=== PATIENT | male | born 1990 ===

== ENCOUNTER 2020-07-09 01:15 | Emergency (ER) | payer SELFPAY ==
--- NOTE | 2020-07-09 01:49 | EDM.PDOC ---
ED HPI GENERAL MEDICAL PROBLEM - General Chief Complaint: General Stated Complaint: "I think I have a kidney stone again" Time Seen by Provider: 07/09/20 01:46 Source of Information: Reports: Patient History Limitations: Reports: No Limitations - History of Present Illness INITIAL COMMENTS - FREE TEXT/NARRATIVE: States that he woe up at 12:20 to go to the [place] and he had sudden onset of right sided abdominal pain. Has history of right sided kidney stone 4 years ago. has not had any since then. Pt is having difficulty finding position of comfort. No nausea at this time. Onset: Today Onset Date: 07/09/20 Onset Time: 00:20 Location: Reports: Abdomen (right sided flank pain.) Quality: Reports: Sharp, Stabbing Associated Symptoms: Denies: Fever/Chills, Nausea/Vomiting RIGHT FLANK Pain Score (Numeric/FACES): 9 - Related Data Allergies Allergy/AdvReac Type Severity Reaction Status Date / Time No Known Allergies Allergy Verified 07/09/20 01:20 Home Meds: Home Meds . [No Known Home Meds] 05/31/16 [History] Past Medical History - Past Health History Medical/Surgical History: Denies Medical/Surgical History Genitourinary History: Reports: Renal Calculus Social & Family History - Family History Family Medical History: No Pertinent Family History - Tobacco Use Tobacco Use Status *Q: Never Tobacco User - Caffeine Use Caffeine Use: Reports: None ED ROS GENERAL - Review of Systems Review Of Systems: See Below Constitutional: Denies: Fever, Chills Respiratory: Reports: No Symptoms Cardiovascular: Reports: No Symptoms GI/Abdominal: Reports: Abdominal Pain, Constipation, Diarrhea : Reports: Flank Pain. Denies: Dysuria ED EXAM, GENERAL - Physical Exam Exam: See Below Exam Limited By: No Limitations General Appearance: Alert, WD/WN, Severe Distress Respiratory/Chest: No Respiratory Distress, Lungs Clear, Normal Breath Sounds Cardiovascular: Regular Rate, Rhythm GI/Abdominal: Normal Bowel Sounds, Soft, Tender (right sided md abdominal pain.) Neurological: Alert, Oriented Skin Exam: Warm, Dry, Intact Course - Vital Signs Last Recorded V/S: Last Vital Signs Temp 97.4 F 07/09/20 03:24 Pulse 94 07/09/20 03:24 Resp 18 07/09/20 03:24 BP 137/89 07/09/20 03:24 Pulse Ox 98 07/09/20 03:24 - Orders/Labs/Meds Orders: Active Orders 24 hr Category Date Time Status Abdomen Pelvis wo Cont [CT] Stat Exams 07/09/20 01:59 Ordered HYDROmorphone [Dilaudid] Med 07/09/20 02:09 Ordered 1 mg IVPUSH Q1H PRN Sodium Chloride 0.9% [Normal Saline] 1,000 ml Med 07/09/20 02:00 Active IV ASDIRECTED Medication Orders Hydromorphone HCl (Dilaudid) 1 mg IVPUSH Q1H PRN PRN Reason: Pain Last Admin: 07/09/20 02:12 Dose: 1 mg Documented by: CLAUS Sodium Chloride (Normal Saline) 1,000 mls @ 500 mls/hr IV ASDIRECTED OBEY Last Admin: 07/09/20 01:58 Dose: 500 mls/hr Documented by: CLAUS Labs: Laboratory Tests 07/09/20 07/09/20 07/09/20 Range/Units 01:28 01:28 01:28 WBC 6.5 (5.0-10.0) 10^3/uL RBC 4.75 (4.50-6.00) 10^6/uL Hgb 14.9 (14.0-18.0) g/dL Hct 42.1 (40.0-54.0) % MCV 88.6 (82.0-94.0) fL MCH 31.4 (27.0-32.0) pg MCHC 35.4 (33.0-38.0) g/dL RDW Coeff of [place] 11.6 (11.0-15.0) % Plt Count 236 (150-400) 10^3/uL Neut % (Auto) 42.7 (35-85) % Lymph % (Auto) 49.5 (10-55) % [place] % (Auto) 6.3 (0-16) % Eos % (Auto) 1.2 (0-5) % Baso % (Auto) 0.3 (0-3) % Neut # (Auto) 2.79 (1.80-7.00) 10^3/uL Lymph # (Auto) 3.23 (1.00-4.80) 10^3/uL [place] # (Auto) 0.41 (0.00-0.80) 10^3/uL Eos # (Auto) 0.08 (0.00-0.45) 10^3/uL Baso # (Auto) 0.02 10^3/uL Sodium 140 (136-145) mEq/L Potassium 3.5 (3.5-5.0) mEq/L Chloride 101 (98-106) mEq/L Carbon Dioxide 29 (21-32) mmol/L BUN 13 (7-18) mg/dL Creatinine 1.1 (0.7-1.3) mg/dL Est Cr Clr Drug Dosing 95.86 mL/min Estimated GFR (MDRD) > 60 (>=60) mL/min Glucose 132 H (75-99) mg/dL Calcium 8.9 (8.4-10.1) mg/dL Urine Color Yellow (YELLOW) Urine Appearance Slightly cloudy (CLEAR) Urine pH 5.5 (4.5-8.0) Ur Specific [place] >= 1.030 H (1.003-1.020) Urine Protein 30 H (NEGATIVE) mg/dL Urine Glucose (UA) Negative (NEGATIVE) mg/dL Urine Ketones Negative (NEGATIVE) mg/dL Urine Occult Blood Large H (NEGATIVE) Urine Nitrite Negative (NEGATIVE) Urine Bilirubin Negative (NEGATIVE) Urine Urobilinogen 0.2 (0.2-1.0) EU/dL Ur Leukocyte Esterase Negative (NEGATIVE) Urine RBC >100 H (0-5) /HPF Urine WBC 0-5 (0-5) /HPF Ur Squamous Epith Cells Rare (NOT SEEN) /HPF Meds: Medications Generic Name Dose Route Start Last Admin Trade Name Freveronica PRN Reason Stop Dose Admin Hydromorphone HCl 1 mg 07/09/20 02:09 07/09/20 02:12 Dilaudid IVPUSH 1 mg Q1H PRN Administration Pain Sodium Chloride 1,000 mls @ 500 mls/hr 07/09/20 02:00 07/09/20 01:58 Normal Saline IV 500 mls/hr ASDIRECTED OBEY Administration Discontinued Medications Generic Name Dose Route Start Last Admin Trade Name Dean PRN Reason Stop Dose Admin Ketorolac Tromethamine 30 mg 07/09/20 01:54 07/09/20 02:04 Toradol IVPUSH 07/09/20 01:55 30 mg ONETIME ONE Administration Morphine Sulfate 4 mg 07/09/20 01:51 07/09/20 01:59 Morphine IVPUSH 07/09/20 01:52 4 mg ONETIME ONE Administration Tamsulosin HCl 0.4 mg 07/09/20 01:54 07/09/20 02:04 Flomax PO 07/09/20 01:55 0.4 mg ONETIME ONE Administration - Re-Assessments/Exams Free Text/Narrative Re-Assessment/Exam: 07/09/20 03:[address] report with pt. He has total of 5 stones in varying sizes with 3.6 mm stone obstructing the on the right. Pain is controlled at this time. will make referral to Urology in the morning to [place]. Pt is in agreement with this. Will discharge on home pain meds and continue on the flomax. Departure - Departure Time of Disposition: 03:27 Disposition: Home, Self-Care 01 Condition: Good Clinical Impression: Ureteral stone - Discharge Information *PRESCRIPTION DRUG MONITORING PROGRAM REVIEWED*: Not Applicable *COPY OF PRESCRIPTION DRUG MONITORING REPORT IN PATIENT KIRSTIE: Not Applicable Forms: ED Department Discharge Additional Instructions: Push fluids will call with appt to urology tomorrow Myton 1-2 tabs every 4-6 hours as needed for pain Flomax 0.4 mg daily for the next week or as advised by the urologist. Recheck if any new concerns. Sepsis Event Note (ED) - Evaluation Sepsis Screening Result: No Definite Risk - Focused Exam Vital Signs: Vital Signs Temp Pulse Resp BP Pulse Ox 07/09/20 03:24 97.4 F 94 18 137/89 98 07/09/20 01:20 97.7 F 91 20 136/96 H 96 - Problem List & Annotations (1) Ureteral stone SNOMED Code(s): 90511782 Code(s): N20.1 - CALCULUS OF URETER Status: Acute Priority: High Current Visit: Yes - Problem List Review Problem List Initiated/Reviewed/Updated: Yes - My Orders Last 24 Hours: My Active Orders 07/09/20 01:59 Abdomen Pelvis wo Cont [CT] Stat 07/09/20 02:00 Sodium Chloride 0.9% [Normal Saline] 1,000 ml IV ASDIRECTED 07/09/20 02:09 HYDROmorphone [Dilaudid] 1 mg IVPUSH Q1H PRN - Assessment/Plan Last 24 Hours: My Active Orders 07/09/20 01:59 Abdomen Pelvis wo Cont [CT] Stat 07/09/20 02:00 Sodium Chloride 0.9% [Normal Saline] 1,000 ml IV ASDIRECTED 07/09/20 02:09 HYDROmorphone [Dilaudid] 1 mg IVPUSH Q1H PRN
[2020-07-09] MEDS ORDERED: Morphine 4 MG/ML VIAL IVPUSH ONE (01:51)
[2020-07-09] MEDS ORDERED: Tamsulosin 0.4 MG Cap.ER PO ONE (01:54)
[2020-07-09] MEDS ORDERED: Ketorolac 30 MG/ML SDV IVPUSH ONE (01:54)
[2020-07-09 01:56] LABS: CHLORIDE,CL 101 mEq/L (98-106); SODIUM,NA 140 mEq/L (136-145)
[2020-07-09] MEDS ORDERED: Sodium Chloride 0.9% 1,000 ML IV SCH (02:00)
[2020-07-09] MEDS: HYDROmorphone 1 MG/ML Syringe IVPUSH PRN ×2 (02:12→03:36)
[2020-07-09] MEDS ORDERED: Acetaminophen/HYDROcodone 325-5 MG Tab ONE (03:13)
[2020-07-09 03:25] VITALS: BP 137/89; PULSE 94
[2020-07-09] MEDS ORDERED: Take Home: Acetaminophen/HYDROcodone 325-5 MG, 2 Tab Pack PO ONE (03:30)
== END 2020-07-09 04:01 | disposition home or self-care (01) ==
LOC: CC.ED 01:15
DX: N13.2 Hydronephrosis with renal and ureteral calculous obstruction (principal)
CPT/HCPCS: 36415; 74176; 80048; 81001; 85025; 96374; 96375; 96376; 99284-25; A9270-GY; J1170; J1885; J2270; J7030

== ENCOUNTER 2025-01-27 10:30 | Emergency (ER) | payer SELFPAY ==
[2025-01-27] MEDS: Ondansetron 4 MG/2 ML SDV IVPUSH STA (10:47)
[2025-01-27 11:04] LABS: BASOPHILS ABSOLUTE AUTO 0.02 10^3/uL (0.00-0.50); BASOPHILS PERCENT AUTO 0.3 % (0-1); EOSINOPHILS ABSOLUTE AUTO 0.04 10^3/uL (0.00-1.50)
[2025-01-27 11:09] LABS: EOSINOPHILS PERCENT AUTO 0.7 % (0-6); IMMATURE GRAN ABSOLUTE AUTO 0.02 10^3/uL (0.00-0.49); IMMATURE GRAN PERCENT AUTO 0.3 % (0.0-4.9); LYMPHOCYTES ABSOLUTE AUTO 1.61 10^3/uL (0.60-5.00); LYMPHOCYTES PERCENT AUTO 26.6 % (24-44); MONOCYTES ABSOLUTE AUTO 0.28 10^3/uL (0.00-1.50); MONOCYTES PERCENT AUTO 4.6 % (0-10); NEUTROPHILS ABSOLUTE AUTO 4.09 x10^3/uL (1.80-8.00); NEUTROPHILS PERCENT AUTO 67.5 % (41-71); PLATELET COUNT,PLT 247 10^3/uL (150-400); RED BLOOD CELL COUNT 5.23 x10^6/uL (4.50-6.00); WHITE BLOOD CELL COUNT,WBC 6.1 10^3/uL (4.0-11.0)
[2025-01-27 11:22] LABS: ALANINE AMINOTRANSFERASE,ALT 98.0 U/L (12-78); ASPARTATE AMNIOTRANSFERASE,AST 37.0 U/L (15-37); BILIRUBIN TOTAL 0.7 mg/dL (0.0-1.0); BLOOD UREA NITROGEN,BUN 13.0 mg/dL (7-18); CARBON DIOXIDE,CO2 26.0 mmol/L (21-32); CHLORIDE,CL 102.0 mEq/L (98-106); CREATININE 1.1 mg/dL (0.7-1.3); EST CRCL DRUG DOSING (CG) 92.41 mL/min; ESTIMATED GFR 91.0 mL/min (>=60); GLUCOSE RANDOM 145.0 mg/dL (75-99); POTASSIUM,K 3.5 mEq/L (3.5-5.0); PROTEIN TOTAL,TP 7.9 g/dL (6.4-8.2); SODIUM,NA 139.0 mEq/L (136-145)
[2025-01-27] MEDS: Ketorolac 30 MG/ML SDV IVPUSH ONE (12:09)
[2025-01-27 12:23] LABS: GLUCOSE,URINE NEGATIVE (NEGATIVE); OCCULT BLOOD,URINE MODERATE (NEGATIVE)
[2025-01-27 12:24] LABS: APPEARANCE,URINE SLIGHTLY CLOUDY (CLEAR)
[2025-01-27] MEDS: Take Home: Ondansetron 4 MG Tab.DIS, 2 Tab Pack PO ONE (12:59)
[2025-01-27] MEDS: Take Home: Ketorolac 10 MG Tab, 4 Tab Pack PO ONE (12:59)
[2025-01-27] MEDS: Take Home: Acetaminophen/oxyCODONE 325-5 MG, 2 Tab Pack PO ONE (13:00)
[2025-01-27 13:32] VITALS: BP 121/80; PULSE 61
== END 2025-01-27 13:39 | disposition home or self-care (01) ==
LOC: CC.ED 10:30
DX: N13.2 Hydronephrosis with renal and ureteral calculous obstruction (principal); Z79.899 Other long term (current) drug therapy
CPT/HCPCS: 36415; 74176; 80053; 81001; 83735; 85025; 96361; 96374; 96375; 99284-25; A9270-GY; J1171; J1885; J2405; J7030